=== PATIENT | female | born 1930 | race Caucasian/White ===

== ENCOUNTER 2016-12-26 21:05 | Emergency (ER) | payer OTHER ==
[~2016-12-26] VITALS: Ht 162.6 cm; Wt 52.2 kg
[~2016-12-26 21:05] MED LIST: LOVENOX40 MG/0.1 SC; MIRALAX119 GM PO; OXYCODONE HCL10 M2 PO
--- NOTE | 2016-12-26 21:07 | ED GENERAL ADULT ---
See Addendum History of Present Illness General Chief Complaint: General Adult Stated Complaint: BIBA FOR GENERALIZED WEAKNESS Source: patient, family Exam Limitations: patient's age, clinical condition, poor historian Vital Signs & Intake/Output Vital Signs & Intake/Output Vital Signs Date Time Temp Pulse Resp B/P B/P Pulse O2 O2 Flow FiO2 Mean Ox Delivery Rate 12/27 2111 98 Room Air 12/26 2110 95.7 79 20 134/76 99 Room Air Allergies Coded Allergies: NO KNOWN ALLERGIES (03/30/16) Reconcile Medications Enoxaparin Sodium (Lovenox) 40 MG/0.4 ML SYRINGE 40 MG SC DAILY BLOOD THINNER Oxycodone HCl 10 MG TABLET 1 TAB PO Q4P PRN PAIN PLEASE CRUSH AND GIVE WITH APPLE SAUCE Polyethylene Glycol 3350 (Miralax) 119 GM POWDER 17 GM PO DAILY COPD Triage Nurses Notes Reviewed? yes Onset: Abrupt Duration: hour(s): Timing: recent history HPI: 12/26/16 9:17 PM 86-year-old female presents to the emergency department for a sudden onset of abdominal pain nausea and vomiting. She denies chest pain fever or other complaints Apparently she was having dinner earlier this evening with her daughter and ate some scallops. The patient got sick but her daughter did not. Onset of the pain was abrupt Duration of the pain was just this evening The severity was significant as her symptoms required her to come to the hospital by ambulance. Past History Travel History Traveled to [place] past 21 day No Medical History Any Pertinent Medical History? 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 No Review of Systems Review of Systems Constitutional: Reports: no symptoms. EENTM: Reports: no symptoms. Respiratory: Reports: no symptoms. Cardiovascular: Reports: no symptoms. GI: Reports: no symptoms. Genitourinary: Reports: no symptoms. Musculoskeletal: Reports: see HPI, joint pain. Skin: Reports: no symptoms. Neurological/Psychological: Reports: no symptoms. Hematologic/Endocrine: Reports: no symptoms. Immunologic/Allergic: Reports: no symptoms. All Other Systems: Reviewed and Negative Physical Exam Physical Exam General Appearance: alert, awake, anxious, moderate distress Head: atraumatic, normal appearance Eyes: Bilateral: normal appearance, PERRL, EOMI. Ears, Nose, Throat: normal pharynx, normal ENT inspection Neck: normal inspection, supple Respiratory: no respiratory distress Cardiovascular: regular rate/rhythm Peripheral Pulses: 4+ radial (R), 4+ radial (L) Gastrointestinal: tenderness, LLQ Back: decreased range of motion Extremities: pedal edema, tenderness (RIGHT HIP) Neurologic/Psych: no motor/sensory deficits, awake, alert, oriented x 3 Skin: intact, normal color, warm/dry Core Measures ACS in differential dx? No CVA/TIA Diagnosis: No Severe Sepsis Present: No Septic Shock Present: No Progress Differential Diagnoses I considered the following diagnoses in my evaluation of the patient: [ Diverticulitis, aortic dissection, appendicitis, gastroenteritis, pancreatitis, acute coronary syndrome] Plan of Care: Orders Procedure Date/time Status BLOOD CULTURE 12/26 2121 Active TROPONIN LEVEL 12/26 2121 Active LIPASE 12/26 2121 Active COMPREHENSIVE METABOLIC PANEL 12/26 2121 Active CBC WITHOUT DIFFERENTIAL 12/26 2121 Active AMYLASE 12/26 2121 Active EKG 12/26 2121 Active Current Medications Sig/Alex Start time Last Medication Dose Stop Time Status Admin Ondansetron HCl 4 MG ONCE ONE 12/26 2129 UNVr (Zofran) 12/26 2130 Microbiology 12/26 2121 BLOOD: Blood Culture - ORD 12/26 2121 BLOOD: Blood Culture - ORD She was treated with IV fluids. Labs were ordered. EKG and CT scan of the abdomen and pelvis were ordered. (ADILENE FARR DO) Initial ED EKG: PENDING Departure Departure Disposition: STILL A PATIENT Condition: Stable Clinical Impression Primary Impression: Abdominal pain Referrals: TEZ MORRISON MD (PCP/Family) Departure Forms: Customer Survey General Discharge Information Critical Care Note Critical Care Note Critical Care Time: non-applicable
[2016-12-26 21:48] LABS: ABSOLUTE BASOPHIL COUNT 0 /CUMM (0.0-0.2); ABSOLUTE EOSINOPHIL COUNT 0.1 /CUMM (0.0-0.7); ABSOLUTE GRANULOCYTE CT 6.5 /CUMM (1.4-6.5); ABSOLUTE LYMPH COUNT 0.7 /CUMM (1.2-3.4); ABSOLUTE MONOCYTE COUNT 0.4 /CUMM (0.10-0.60); BASOPHIL % 0.2 % (0.0-2.0); EOSINOPHIL % 1.4 % (0-5); GRANULOCYTE % 83.8 % (42.2-75.2); HEMATOCRIT 39.7 % (37-47); MEAN CORPUSCULAR HGB 30.4 PG (27.0-31.0); MEAN CORPUSCULAR HGB CONC 33.6 G/DL (33.0-37.0); MEAN CORPUSCULAR VOLUME 90.6 FL (81.0-99.0); MEAN PLATELET VOLUME 7.6 FL (7.4-10.4); PLATELET COUNT 261 /CUMM (130-400); RBC DISTRIBUTION WIDTH 14.7 % (11.5-14.5); RED BLOOD CELL CT 4.38 /CUMM (4.20-5.40); WHITE BLOOD CELL COUNT 7.8 /CUMM (4.8-10.8)
--- NOTE | 2016-12-26 23:42 | CT SCAN REPORT ---
EXAMINATION: CT HEAD WITHOUT CONTRAST CLINICAL INFORMATION: 86-year-old woman with headache and weakness. COMPARISON: 08/28/[address] TECHNIQUE: Contiguous axial imaging was performed from the skull base to vertex without intravenous administration of contrast. DLP: 615 mGy-cm FINDINGS: There is no evidence of acute intracranial hemorrhage or territorial infarction. No abnormal mass effect or midline shift is seen. Farrell to white matter differentiation is well preserved. No extra-axial fluid collections are identified. The ventricles are normal in size. There is no abnormal attenuation within the brain parenchyma. The osseous structures and soft tissues are normal. The mastoid air cells and visualized portions of the paranasal sinuses are well aerated. IMPRESSION: No acute intracranial pathology.
--- NOTE | 2016-12-26 23:43 | CT SCAN REPORT ---
EXAMINATION: CT ABDOMEN AND PELVIS WITH CONTRAST CLINICAL INFORMATION: Left lower quadrant pain COMPARISON: CT 08/28/2012 TECHNIQUE: Multidetector volumetric imaging was performed from the superior aspect of the liver through the pubic symphysis following administration of 95 mL of Optiray 320 Sagittal and coronal reformatted images were obtained on the technologist workstation. DLP: 250 mGy-cm FINDINGS: LUNG BASES: There are bilateral subpleural coarse calcifications. No consolidation. No significant effusion. LIVER, GALLBLADDER, AND BILIARY TREE: There is reflux of contrast into the hepatic veins. The liver enhances homogeneously. There is mild intrahepatic biliary dilatation. There are a few tiny scattered areas of hypoattenuation which are too small to characterize. Statistically, these additional findings likely represent cysts. The largest is located in segment 4B of the left lobe of the liver measuring 0.3 cm in size.. The gallbladder is mildly distended. The common bile duct and pancreatic duct measuring 1.1 and 0.5 cm respectively. PANCREAS: Ductal dilatation as described. No discrete lesion can be identified. SPLEEN: Unremarkable. ADRENAL GLANDS: Unremarkable. KIDNEYS AND URETERS: The kidneys are normal in size. 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 There is prominence of the right renal pelvis, a new finding compared to previous. No convincing hydronephrosis of either kidney. BLADDER: Unremarkable. GASTROINTESTINAL TRACT: There is dense stool within the rectum and throughout the sigmoid colon. There are numerous diverticula scattered throughout the descending and sigmoid colon. There are mild inflammatory changes surrounding the lower and inferior aspect of the descending colon (image 36, series 602). There is no perforation. No organized abscess. These changes are quite subtle. The small bowel is unremarkable. ABDOMINAL WALL: No significant hernia is appreciated. LYMPH NODES: Normal. VASCULAR: Unremarkable. PELVIC VISCERA: The uterus is surgically absent. There is no free fluid within the pelvis. OSSEOUS STRUCTURES: Right hip prosthesis is partially imaged. Mild multilevel degenerative changes of the lower thoracic and lumbar spine. IMPRESSION: 1. Mild uncomplicated diverticulitis involving the distal descending colon. 2. Bibasilar subpleural coarse calcifications suggesting prior history of asbestos dust exposure. 3. 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 4. Double duct sign including dilatation of the common bile duct and pancreatic duct. These findings are both little changed compared to the prior CT from 2012. Mild intrahepatic biliary dilatation. Recommend correlation with liver function tests. Without significant changes from 2013 the possibility of an underlying pancreatic head malignancy is considered less likely. This could be further assessed with ERCP or MRCP as clinically appropriate. 5. The gallbladder appears relatively distended. No other CT findings to suggest acute cholecystitis. Correlation with symptoms recommended. If clinically appropriate, consider further evaluation with ultrasound.
[2016-12-27] MEDS ORDERED: CIPRO250 MG/5 M PO (01:17)
[2016-12-27] MEDS ORDERED: FLAGYL500 MG PO (01:17)
[2016-12-27 01:27] VITALS: BP 152/81
== END 2016-12-27 01:28 ==
LOC: ERH 21:05
PROVIDERS: Emergency Medicine
DX: K57.92 Diverticulitis of intestine, part unspecified, without perforation or abscess without bleeding (principal)
CPT/HCPCS: 74177; 87040; 87147; 93005; 93010; 96365; 96375; J0131; J2405